=== PATIENT | female | born 2000 | race Two or more races ===

== ENCOUNTER → 2024-09-28 | Outpatient (CLI) | payer OTHER ==
[2024-09-28 19:00] LABS: URIC ACID 4.1 MG/DL (3.1-7.8)
[2024-09-28 19:03] LABS: ALBUMIN 2.8 G/DL (3.2-5.2); ALKALINE PHOSPHATASE 111 U/L (35-104); ALT/SGPT 13 U/L (7.0-40); AST/SGOT 9 U/L (<34); BILIRUBIN,TOTAL 0.4 MG/DL (0.3-1.2); BLOOD UREA NITROGEN 5 MG/DL (9-23); CALCIUM LEVEL 9.4 MG/DL (8.5-10.1); CARBON DIOXIDE LEVEL 24 MMOL/L (20-31); CHLORIDE LEVEL 107 MMOL/L (98-107); CREATININE FOR GFR 0.66 MG/DL (0.55-1.30); GLOMERULAR FILTRATION RATE > 60.0 (>60); GLUCOSE, FASTING 123 MG/DL (60-100); POTASSIUM SERUM 4.3 MMOL/L (3.5-5.1); SODIUM LEVEL 137 MMOL/L (136-145); TOTAL PROTEIN 6.8 G/DL (5.7-8.2)
== END ==
LOC: M PLALAB 15:41
PROVIDERS: ATTEND Nurse Practitioner Family
DX: O99.713 Diseases of the skin and subcutaneous tissue complicating pregnancy, third trimester (principal)

== ENCOUNTER → 2024-11-07 | Outpatient (REF) | payer OTHER ==
[~2024-11-07] MED LIST: ASPI81CH33 PO; PRENTAB9 PO
== END ==
LOC: M SFHCWAGY 13:08
PROVIDERS: ATTEND Obstetrics & Gynecology
DX: Z36.89 Encounter for other specified antenatal screening (principal); Z3A.38 38 weeks gestation of pregnancy

== ENCOUNTER 2024-11-23 22:19 | Inpatient (IN) | payer OTHER ==
[~2024-11-23] VITALS: Ht 172.7 cm; Wt 121.3 kg
[2024-11-23 22:42] VITALS: BP 134/92
[2024-11-23 22:47] VITALS: BP 134/69
[2024-11-23] MEDS ORDERED: ASPI81CH33 PO (22:50)
[2024-11-23] MEDS ORDERED: PRENTAB9 PO (22:50)
[2024-11-23] MEDS ORDERED: HOME MED LIST COMPLETE! XX SCH (22:55)
[2024-11-23] MEDS ORDERED: TRANEXAMIC ACID INJection 1,000 MG in NS 100 ML IV PRN (23:50)
[2024-11-23] MEDS ORDERED: OXYTOCIN INJ 10UNITS/ML 1ML VIAL IM PRN (23:50)
[2024-11-23] MEDS ORDERED: LIDOCAINE 1% MDV 20ML VIAL INFIL PRN (23:50)
[2024-11-23] MEDS ORDERED: CARBOPROST TROMETHAMINE 250 MCG/ML AMP IM PRN (23:50)
[2024-11-23] MEDS ORDERED: METHYLERGONOVINE MALEATE 0.2MG/ML 1ML VIAL IM PRN (23:50)
[2024-11-23] MEDS ORDERED: OXYTOCIN DRIP 30 UNITS in IV 1 EA IV PRN (23:50)
[2024-11-24] VITALS (41 sets, daily range): BP systolic 103–166; BP diastolic 51–102; TEMP 98
[2024-11-24 00:36] LABS: HEMATOCRIT 39.1 % (36.0-47.0); HEMOGLOBIN 13.1 g/dl (12.0-15.5); MEAN CORPUSCULAR HEMOGLOBIN 25.9 pg (27.0-33.0); MEAN CORPUSCULAR HGB CONC 33.5 g/dl (32.0-36.5); MEAN CORPUSCULAR VOLUME 77.4 fl (80.0-96.0); PLATELET COUNT, AUTOMATED 300 10^3/uL (150-450); RED BLOOD COUNT 5.05 10^6/uL (4.00-5.40); WHITE BLOOD COUNT 11.3 10^3/uL (4.0-10.0)
[2024-11-24] MEDS: miSOPROStol 50MCG 1/2 TABLET PO ONE ×2 (00:42→06:02)
[2024-11-24 03:54] LABS: HIV 1&2 SCREEN NEGATIVE (NEGATIVE)
[2024-11-24 04:02] LABS: HEPATITIS C VIRUS ABY INDEX < 0.02 INDEX (<0.8)
[2024-11-24] MEDS: LR 1,000 ML IV SCH (10:36)
[2024-11-24] MEDS: OXYTOCIN DRIP 30 UNITS in IV 1 EA IV SCH (10:37)
[2024-11-24] MEDS ORDERED: EPIDURAL/PCA KEYS XX PRN (13:50)
[2024-11-24] MEDS ORDERED: diphenhydrAMINE 50MG/ML VIAL IV PRN ×2 (13:50→23:00)
[2024-11-24] MEDS ORDERED: NALOXONE INJ 0.4MG/1ML VIAL IV PRN ×3 (13:50→23:00)
[2024-11-24] MEDS ORDERED: ONDANSETRON 4MG 2ML VIAL IV PRN ×2 (13:50→23:00)
[2024-11-24] MEDS: FENTANYL/ROPIVACAINE/NACL BAG 100 ML EPIDURAL SCH (14:26)
[2024-11-24] MEDS: ePHEDrine SULFATE 25 MG/5 ML(5MG/ML) SYRINGE IVP PRN (18:12)
[2024-11-24] MEDS: LR 500 ML IV PRN (18:16)
[2024-11-24] MEDS: ceFAZolin SOD 2 GM in IV 1 EA IV ONE (21:35)
[2024-11-24] MEDS: AZITHROMYCIN INJ 500 MG, VIAL MATE ADAPTER 1 EACH in NS 250 ML IV ONE (21:43)
[2024-11-24] MEDS: BICITRA 30ML SOLN UDC PO ONE (21:43)
[2024-11-24] MEDS ORDERED: OXYTOCIN 30UNITS IN 0.9% NaCl 500ML IV BAG As Ordered ONE (22:05)
[2024-11-24] MEDS ORDERED: LIDOCAINE 2% W/EPINEPHRINE 20ML VIAL **PRES FREE As Ordered ONE (22:05)
[2024-11-24] MEDS ORDERED: fentaNYL 100 MCG/2 ML INJECTION As Ordered ONE (22:05)
[2024-11-24] MEDS ORDERED: PHENYLephrine 500MCG 5ML (100MCG/ML) SYRINGE As Ordered ONE (22:22)
[2024-11-24] MEDS ORDERED: ONDANSETRON 4MG 2ML VIAL As Ordered ONE (22:22)
[2024-11-24] MEDS ORDERED: MORPHINE PRES-FREE INJ 10 MG/10 ML VIAL As Ordered ONE (22:26)
[2024-11-24] MEDS ORDERED: KETOROLAC 60MG 2ML VIAL As Ordered ONE (22:27)
[2024-11-24] MEDS: SLF 3 ML SYR IV SCH (23:00)
[2024-11-24] MEDS ORDERED: **NOTE PATIENT COMMENT** MISC XX SCH (23:00)
[2024-11-24] MEDS ORDERED: fentaNYL 100 MCG/2 ML INJECTION IV PRN (23:00)
[2024-11-24] MEDS ORDERED: PERCOCET 5MG/325MG TAB PO PRN (23:00)
[2024-11-24] MEDS ORDERED: MEPERIDINE 25 MG/ML 1ML VIAL IV PRN (23:00)
[2024-11-25] VITALS (10 sets, daily range): BP systolic 112–135; BP diastolic 58–86; O2SAT 95–99
[2024-11-25] MEDS: OXYTOCIN DRIP 30 UNITS in IV 1 EA IV PRN
[2024-11-25] MEDS ORDERED: PERCOCET 5MG/325MG TAB PO PRN ×2 (01:25)
[2024-11-25] MEDS ORDERED: MOM 30ML SUSPENSION UDC PO PRN (01:25)
[2024-11-25] MEDS ORDERED: CALCIUM CARBONATE 500 MG CHEW U/D PO PRN (01:25)
[2024-11-25] MEDS ORDERED: SIMETHICONE 80MG CHEW TAB PO PRN (01:25)
[2024-11-25] MEDS ORDERED: RHOGAM 300MCG (1500IU) INJ IM SCH (01:25)
[2024-11-25] MEDS ORDERED: METHYLERGONOVINE MALEATE 0.2MG/ML 1ML VIAL IM PRN (01:25)
[2024-11-25] MEDS: LR 1,000 ML IV SCH (02:02)
[2024-11-25] MEDS: METOCLOPRAMIDE INJ 10MG/2ML VIAL IV PRN (02:02)
[2024-11-25] MEDS: KETOROLAC 30 MG/ML 1ML VIAL IV SCH (04:29)
[2024-11-25] MEDS: PRENATAL VITAMINS CHEWABLE TABLET PO SCH (08:57)
[2024-11-25] MEDS: DOCUSATE SODIUM 100MG CAPSULE PO SCH (08:57)
[2024-11-25 09:49] LABS: HEMATOCRIT 30.5 % (36.0-47.0); MEAN CORPUSCULAR HEMOGLOBIN 26.1 pg (27.0-33.0); MEAN CORPUSCULAR HGB CONC 32.5 g/dl (32.0-36.5); MEAN CORPUSCULAR VOLUME 80.3 fl (80.0-96.0); PLATELET COUNT, AUTOMATED 206 10^3/uL (150-450); WHITE BLOOD COUNT 12.3 10^3/uL (4.0-10.0)
[2024-11-25 09:59] LABS: HEMOGLOBIN 9.9 g/dl (12.0-15.5)
[2024-11-26] MEDS: IBUPROFEN 800 MG TAB PO SCH (00:30)
[2024-11-26 02:00] VITALS: BP 138/78; O2SAT 98
[2024-11-26 06:00] VITALS: BP 124/62; O2SAT 98
[2024-11-26 10:00] VITALS: BP 120/78; O2SAT 100
[2024-11-26] MEDS ORDERED: BOOSTRIX VACCINE (TETANUS/DIPHTH/ACEL. PERTUSSIS) 0.5ML SYR IM.IMMUN ONE (13:10)
[2024-11-26] MEDS ORDERED: FLUZONE VACCINE TRIVALENT PF(2024-25) 0.5ML SYRINGE IM.IMMUN ONE (13:10)
[2024-11-26] MEDS: MEASLES,MUMPS,RUBELLA VACCINE INJ (MMR-II) SC.IMMUN ONE (14:45)
[2024-11-27] MEDS ORDERED: FLUZONE VACCINE TRIVALENT PF(2024-25) 0.5ML SYRINGE IM.IMMUN ONE (09:00)
[2024-11-27] MEDS ORDERED: MEASLES,MUMPS,RUBELLA VACCINE INJ (MMR-II) SC.IMMUN ONE (09:00)
[2024-11-27] MEDS ORDERED: BOOSTRIX VACCINE (TETANUS/DIPHTH/ACEL. PERTUSSIS) 0.5ML SYR IM.IMMUN ONE (09:00)
== END 2024-11-26 15:15 | disposition home or self-care (01) | DRG 540 ==
LOC: M LDO 22:19 → M LDI 23:36 → M OBS 11-25 00:35
PROVIDERS: ADMIT Advanced Practice Midwife; ATTEND Obstetrics & Gynecology
PROC: 3E033VJ Introduction of Other Hormone into Peripheral Vein, Percutaneous Approach (ICD-10-PCS; 2024-11-24)
PROC: 10D00Z1 Extraction of Products of Conception, Low, Open Approach (ICD-10-PCS; principal; 2024-11-24 21:54)
DX: O42.02 Full-term premature rupture of membranes, onset of labor within 24 hours of rupture (principal); Z3A.40 40 weeks gestation of pregnancy; Z79.82 Long term (current) use of aspirin; O48.0 Post-term pregnancy; O62.0 Primary inadequate contractions; Z37.0 Single live birth